=== PATIENT | female | born 1935 | race Caucasian/White ===

== ENCOUNTER 2018-02-23 11:59 | Inpatient (IN) ==
[2018-02-23] MEDS ORDERED: Sod Chloride 0.9% Inj 1,000 ML IV.SIG ONE (13:12)
--- NOTE | 2018-02-23 13:38 | XR ---
EXAM DATE: 02/23/2018 1:28 PM EST AGE/SEX: 82 years / Female INDICATIONS: Cough and congestion with belly pain. CLINICAL DATA: This is the patient's initial encounter. Patient reports that signs and symptoms have been present for 3 days and indicates a pain score of 3/10. MEDICAL/SURGICAL HISTORY: Carcinoma, uterine. Addisons disease. . Partial hysterectomy. COMPARISON: No prior exams available for comparison. FINDINGS: There are COPD changes. The heart and mediastinal contours are within normal limits. No suspicious ma ss lesion is identified. The visualized bony structures are grossly intact. CONCLUSION: COPD changes. Electronically signed by: Austyn Vale MD 02/23/2018 1:37 PM EST
--- NOTE | 2018-02-23 13:52 | ED ---
HPI General Chief complaint: Abdominal Pain Stated complaint: Abdominal Pain Time Seen by Provider: 02/23/18 13:02 Source: patient and EMS Mode of arrival: EMS Limitations: no limitations History of Present Illness HPI narrative: She is an 82-year-old female presenting to [facility] department for evaluation of nausea, an episode of diarrhea and weakness. Patient states she is felt weak for several months. She reports a decreased appetite. She states that she is lost a lot of weight. She currently lives alone and is upset about that, she states her spouse and her 2 children have . None of these deaths occurred recently. She states that she gets upset about Alfa Mtz being our president and has been very depressed. She feels this is the reason she is not eating. Patient states that she has discussed her depression with her primary doctor and reports that she has therapy which felt like shock therapy. She denies any suicidal ideations but states if she got sick enough she would stopped taking her cortisone because her doctor told her if she did not take it she would , and this is how she would end her life. Patient denies any fever , chills, headache, dizziness, shortness of breath. She denies any abdominal pain but states she feels like her stomach is "acidic". Symptom onset was gradual, symptoms are moderate, symptoms appear exacerbated by psychosocial issues. Related Data Home Medications Medication Instructions Recorded Confirmed No Known Home Medications 02/23/18 02/23/18 Allergies Allergy/AdvReac Type Severity Reaction Status Date / Time levofloxacin Allergy Severe HIVES AND Verified 02/23/18 12:55 VOMITING morphine Allergy Severe NAUSEA AND Verified 02/23/18 12:55 VOMITING penicillin G Allergy Severe UNKNOWN Verified 02/23/18 12:55 Sulfa (Sulfonamide Allergy Severe FEVER, Verified 02/23/18 12:55 Antibiotics) HIVES MOLD AdvReac Severe RESPIRATORY Uncoded 02/23/18 12:55 DIFFICULTIES PLASTICS AND NYLON AdvReac Mild RESPIRATORY Uncoded 02/23/18 12:55 DIFFICULTIES. Review of Systems ROS: all other systems reviewed are negative [facility] Medical History Medical History Addisons disease (Acute) Depression (Acute) Uterine cancer (Acute) Surgical History Surgical History History of cholecystectomy (Acute) History of partial hysterectomy (Acute) Social History Social History Substance History: No History of Abuse Second Hand Smoke Exposure: No Smoking Status: Former smoker How Often Do You Have a Drink Containing Alcohol: Never Recent Travel in [place] within the Last 8 Weeks: No Recent Out of Country Travel within the Last 8 Weeks: No Immunization History Tetanus Immunization: >5 Years Exam Narrative Exam Narrative: GENERAL: Thin, slightly cachectic alert elderly female. Presenting in no acute distress. SKIN: Focused skin assessment warm/dry. HEAD: Atraumatic. Normocephalic. EYES: Pupils equal and round. No scleral icterus. No injection or drainage. ENT: No nasal bleeding or discharge. Mucous membranes pink and moist. NECK: Trachea midline. No JVD. CARDIOVASCULAR: Regular rate and rhythm. No murmur appreciated. RESPIRATORY: No accessory muscle use. Clear to auscultation. Breath sounds equal bilaterally. GASTROINTESTINAL: Abdomen soft, non-tender, nondistended. Hepatic and splenic margins not palpable. Positive bowel sounds, no rebound, no guarding. MUSCULOSKELETAL: No obvious deformities. No clubbing. No cyanosis. No edema. NEUROLOGICAL: Awake and alert. No obvious cranial nerve deficits. Motor grossly within normal limits. Normal speech. PSYCHIATRIC: Appropriate mood and affect; insight and judgment normal. Course Initial Documented Vital Signs Temperature 97.9 F 02/23/18 12:50 Pulse Rate 96 H 02/23/18 12:50 Respiratory Rate 18 02/23/18 12:50 Blood Pressure 96/51 L 02/23/18 12:50 Pulse Oximetry 100 02/23/18 12:50 Last Documented Vital Signs Temperature 97.9 F 02/23/18 12:50 Pulse Rate 92 H 02/23/18 15:49 Respiratory Rate 18 02/23/18 15:49 Blood Pressure 102/57 L 02/23/18 15:49 Pulse Oximetry 98 02/23/18 15:50 Medical Decision Making BLAISE Attestation BLAISE supervised visit: Yes Attestation: I, Dr. Bearden, have reviewed the advance practice practitioner's documentation and am in agreement, met with the patient face to face, made the diagnosis, and the medical decision making was done by me. *My assessment and Findings: MDM Narrative Medical decision making narrative: Patient presented for evaluation of nausea and diarrhea. Her presenting complaints appear more related to psychosocial stressors and poor oral intake. Labs and imaging ordered and pending. Patient was given 1 L of IV fluids, chest x-ray shows COPD changes. Chemistry with elevated BUN and creatinine, sodium 126, potassium 5.3. Psych screen placed. Due to metabolic abnormalities patient will be admitted, admit orders placed. Medical Screen Exam Complete: Yes Emergency Medical Condition: Yes Differential Diagnosis Differential Diagnosis: Depression versus metabolic abnormality versus viral syndrome versus other Medical Records Medical records reviewed: Yes I reviewed the patient's medical records. Lab Data Lab results reviewed: Yes I reviewed the patient's lab results. Result diagrams: 02/23/18 13:45 02/23/18 13:45 Lab Results 02/23/18 02/23/18 02/23/18 Range/Units 13:45 13:45 16:00 WBC 14.7 H (4.0-11.0) th/mm3 RBC 4.54 (4.00-5.30) mil/mm3 Hgb 9.6 L (11.6-15.3) gm/dL Hct 31.6 L (35.0-46.0) % MCV 69.6 L (80.0-100.0) fL MCH 21.1 L (27.0-34.0) pg MCHC 30.3 L (32.0-36.0) % RDW 20.5 H (11.6-17.2) % Plt Count 432 (150-450) th/mm3 MPV 7.6 (7.0-11.0) fL Neut % (Auto) 89.2 H (16.0-70.0) % Lymph % (Auto) 3.3 L (9.0-44.0) % [place] % (Auto) 6.8 (0.0-8.0) % Eos % (Auto) 0.1 (0.0-4.0) % Baso % (Auto) 0.6 (0.0-2.0) % Neut # (Auto) 13.1 H (1.8-7.7) th/mm3 Lymph # (Auto) 0.5 L (1.0-4.8) th/mm3 [place] # (Auto) 1.0 H (0.0-0.9) th/mm3 Eos # (Auto) 0.0 (0.0-0.4) th/mm3 Baso # (Auto) 0.1 (0.0-0.2) th/mm3 WBC Differential . Differential Comment Auto diff final Sodium 126 L (136-145) meq/L Potassium 5.3 H (3.5-5.1) meq/L Chloride 92 L (98-107) meq/L Carbon Dioxide 19.6 L (21.0-32.0) meq/L Anion Gap 14 (5-15) meq/L BUN 54 H (7-18) mg/dL Creatinine 1.28 H (0.50-1.00) mg/dL Estimated GFR 40 L (>89) mL/min Random Glucose 113 H (74-106) mg/dL Calcium 9.3 (8.5-10.1) mg/dL Magnesium 2.5 (1.5-2.5) mg/dL Total Bilirubin 0.4 (0.2-1.0) mg/dL AST 42 H (15-37) U/L ALT 22 (10-53) U/L Alkaline Phosphatase 83 (45-117) U/L Total Protein 8.2 (6.4-8.2) g/dL Albumin 3.7 (3.4-5.0) g/dL Lipase 222 (73-393) U/L Urine Color Yellow (Yellw/Straw) Urine Clarity Hazy H (Clear) Urine pH 5.0 (5.0-8.5) Ur Specific [place] 1.016 (1.002-1.035) Urine Protein Negative (Neg-Trace) mg/dL Urine Glucose (UA) Negative (Negative) mg/dL Urine Ketones Trace H (Negative) mg/dL Urine Occult Blood Negative (Negative) Urine Nitrate Negative (Negative) Urine Bilirubin Negative (Negative) Urine Urobilinogen 2.0 H (Less than 2) mg/dL Ur Leukocyte Esterase Negative (Negative) Urine RBC Less than 1 (0-3) /hpf Urine WBC 1 (0-5) /hpf Amorphous Sediment Few H (None) /hpf Hyaline Casts 1 (0-3) /lpf Urine Mucus Few H (Occasional) /lpf Micro UA Comment Culture not ind Ur Microscopic Review Not Reportable Urine Culture Comments Culture not ind Imaging Data Radiologist's impression: Chest X-Ray 02/23/18 13:13 CONCLUSION: COPD changes. Discharge Plan Discharge Disposition Patient Disposition: 30 Still Patient Discharge Condition Condition: Stable Discharge Details Diagnosis: Acute hyponatremia, WILLIE (acute kidney injury), Acute hyperkalemia, Depression Physicians Team ED Provider: Austyn Bearden ED Midlevel Provider: Melva Anaya Primary Care Provider: Jodie Benson Rxs /Orders / Referrals /Forms Prescriptions: No Action No Known Home Medications RF: 0 Discharge Interventions Interventions: Vital Signs Last Done: 02/23/18 15:49 Status ED Status: Admitted Observation Patient
[2018-02-23 13:59] LABS: Baso # (Auto) 0.1 th/mm3 (0.0-0.2); Baso % (Auto) 0.6 % (0.0-2.0); Eos % (Auto) 0.1 % (0.0-4.0); Hematocrit 31.6 % (35.0-46.0); Hemoglobin 9.6 gm/dL (11.6-15.3); Lymph # (Auto) 0.5 th/mm3 (1.0-4.8); Lymph % (Auto) 3.3 % (9.0-44.0); Mean Corpuscular Hemoglobin 21.1 pg (27.0-34.0); Mean Corpuscular Volume 69.6 fL (80.0-100.0); Mean Platelet Volume 7.6 fL (7.0-11.0); Mono % (Auto) 6.8 % (0.0-8.0); Neut # (Auto) 13.1 th/mm3 (1.8-7.7); Neut % (Auto) 89.2 % (16.0-70.0); Platelet Count 432 th/mm3 (150-450); Red Blood Count 4.54 mil/mm3 (4.00-5.30); Red Cell Distribution Width 20.5 % (11.6-17.2); White Blood Count 14.7 th/mm3 (4.0-11.0)
[2018-02-23 14:04] LABS: Mean Corpuscular HGB Conc 30.3 % (32.0-36.0)
[2018-02-23 14:36] LABS: Alanine Aminotransferase 22 U/L (10-53); Albumin 3.7 g/dL (3.4-5.0); Anion Gap 14 meq/L (5-15); Aspartate Aminotransferase 42 U/L (15-37); Blood Urea Nitrogen 54 mg/dL (7-18); Calcium 9.3 mg/dL (8.5-10.1); Carbon Dioxide 19.6 meq/L (21.0-32.0); Chloride 92 meq/L (98-107); Glomerular Filtration Rate 40 mL/min (>89); Glucose,Random 113 mg/dL (74-106); Lipase 222 U/L (73-393); Magnesium 2.5 mg/dL (1.5-2.5); Potassium 5.3 meq/L (3.5-5.1); Sodium 126 meq/L (136-145)
[2018-02-23 14:39] LABS: Alkaline Phosphatase 83 U/L (45-117); Total Protein 8.2 g/dL (6.4-8.2)
[2018-02-23 16:14] LABS: Amorphous Sediment,Urine Few /hpf; Bilirubin,Urine Negative (Negative); Clarity,Urine Hazy (Clear); Color,Urine Yellow (Yellw/Straw); Glucose,Urine (UA) Negative (Negative); Hyaline Casts,Urine 1 /lpf (0-3); Leukocyte Esterase,Urine Negative (Negative); Mucus,Urine Few /lpf (Occasional); Nitrite,Urine Negative (Negative); Specific Gravity,Urine 1.016 (1.002-1.035)
[2018-02-23] MEDS ORDERED: Bisacodyl 10 MG Supp RECTAL PRN (17:32)
[2018-02-23] MEDS ORDERED: Acetaminophen 325 MG Tablet PO PRN (17:32)
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
[2018-02-23] MEDS: Dextrose 5%/NaCl 0.9% Inj 1,000 ML IV.CONT SCH (19:36)
[2018-02-23] MEDS: Heparin - SQ 10,000 UNITS/ML Vial SQ SCH (21:18)
[2018-02-23] MEDS: Hydrocortisone 10 MG Tablet PO SCH (21:18)
[2018-02-23 23:21] VITALS: RESP 18
[2018-02-24] MEDS: Dextrose 5%/NaCl 0.9% Inj 1,000 ML IV.CONT SCH (04:29)
[2018-02-24 05:17] LABS: Hematocrit 27.1 % (35.0-46.0); Hemoglobin 8.4 gm/dL (11.6-15.3); Mean Corpuscular Hemoglobin 21.8 pg (27.0-34.0); Mean Corpuscular Volume 70.6 fL (80.0-100.0); Mean Platelet Volume 7.8 fL (7.0-11.0); Platelet Count 389 th/mm3 (150-450); Red Blood Count 3.84 mil/mm3 (4.00-5.30); Red Cell Distribution Width 21.2 % (11.6-17.2); White Blood Count 11.2 th/mm3 (4.0-11.0)
[2018-02-24 05:21] LABS: Mean Corpuscular HGB Conc 30.9 % (32.0-36.0)
[2018-02-24 05:29] LABS: Anion Gap 9 meq/L (5-15); Blood Urea Nitrogen 33 mg/dL (7-18); Calcium 8.1 mg/dL (8.5-10.1); Carbon Dioxide 20.9 meq/L (21.0-32.0); Chloride 103 meq/L (98-107); Glomerular Filtration Rate 64 mL/min (>89); Glucose,Random 139 mg/dL (74-106); Iron 15 mcg/dL (50-170); Potassium 4.7 meq/L (3.5-5.1); Sodium 133 meq/L (136-145)
[2018-02-24 05:30] LABS: % Iron Saturation 4.2 % (20-50); Alanine Aminotransferase 16 U/L (10-53); Alkaline Phosphatase 70 U/L (45-117); Aspartate Aminotransferase 18 U/L (15-37); Total Iron Binding Capacity 354 mcg/dL (250-450); Total Protein 6.7 g/dL (6.4-8.2)
[2018-02-24] MEDS: Heparin - SQ 10,000 UNITS/ML Vial SQ SCH (06:20)
[2018-02-24 06:42] LABS: Burr Cells 1+; Lymphocytes 8 % (9-44); Monocytes 3 % (0-8); Ovalocytes 1+; Platelet Estimate Normal (Normal); Platelet Morphology Normal (Normal)
[2018-02-24 07:17] VITALS: BP 83/40; PULSE 78; TEMP 97.9; O2SAT 98
[2018-02-24] MEDS: Hydrocortisone 10 MG Tablet PO SCH (08:31)
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
[2018-02-24] MEDS ORDERED: Venlafaxine XR 37.5 MG Capsule PO SCH (12:15)
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
[2018-02-25 15:05] LABS: Chloride, Feces ND mmol/L (()); Osmolality, Feces ND mOsm/kg (()); Potassium, Feces ND mmol/L (()); Sodium, Feces ND mmol/L (())
== END 2018-02-24 13:50 ==
LOC: NEDA 11:59 → NEPE 11:59 → NEPGCP 18:56
PROVIDERS: ADMIT Family Medicine; ATTEND Family Medicine

== ENCOUNTER 2018-02-24 13:52 | Inpatient (IN) ==
[2018-02-24] MEDS ORDERED: Bisacodyl 10 MG Supp RECTAL PRN (14:52)
[2018-02-24] MEDS ORDERED: Aluminum/Magnesium/Simethacone Susp 30 ML UDC PO PRN (14:52)
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
[2018-02-25] MEDS: Senna/Docusate Sodium 8.6/50 MG Tablet PO SCH ×3 (00:19→19:59)
[2018-02-25 09:56] LABS: Calcium 7.7 mg/dL (8.5-10.1); Carbon Dioxide 21.9 meq/L (21.0-32.0); Potassium 4.1 meq/L (3.5-5.1)
[2018-02-25 10:16] LABS: Chol/HDL Ratio 3.88 Ratio; HDL Cholesterol 36.3 mg/dL (40.0-60.0); Thyroid Stimulating Hormone 2.46 uIU/mL (0.358-3.740)
--- NOTE | 2018-02-25 12:21 | P.PNPSY ---
Subjective Remarks: Patient initially admitted by Dr. Romo under the Mckeon act I reviewed Dr. Romo's initial H&P. Dr. Romo has signed first opinion petition supporting Mckeon act I have finished the initial psychiatric template admitting orders and did the med reconciliation review. I have also consulted dietary for this lady. Patient seen by me with RN laying quietly in bed she is a thin slight slender pale frail white female appears her stated age complaining of nausea and weakness. Also complaining of the depression with insomnia decreased appetite marked anhedonia and vague paranoid ideation focus somewhat on bedtime and perceived threats to herself. At this time I feel patient does meet criteria for involuntary psychiatric hospitalization thus I will cosign second opinion petition supporting Mckeon act we will have hospitalist consult will us we will have dietitian consult with us. Patient states her only family is a granddaughter that lives locally for now continue treatment we will order Zofran for her nausea we will continue medications ordered by Dr. Romo Review of Systems Patient complaining of a chronic nausea All other systems reviewed negative except as stated in HPI Mental Status Examination Appearance: Appropriate Consciousness: Alert Orientation: x4 Motor Activity: Normal gait Speech: Unremarkable Language: Adequate Fund of Knowledge: Adequate Attention and Concentration: Adequate Memory: Unremarkable Mood: Sad, Irritable Affect: Other (Slight decreased range and intensity) Thought Process & Associations: Intact Thought Content: Appropriate Hallucination Type: None Delusion Type: Paranoid, Somatic Suicidal Ideation: No Suicidal Plan: No Suicidal Intention: No Homicidal Ideation: No Homicidal Plan: No Homicidal Intention: No Insight: Poor Judgment: Poor Assessment and Plan - Assessment (1) Major depressive disorder, single episode, severe, with psychosis Code(s): F32.3 - Major depressive disorder, single episode, severe with psychotic features Status: Acute - Plan Plan: At this time patient remains significantly depressed with vague psychotic features. Though she denies suicidality but depression is significant and is led to her inability to care for herself we will have hospitalist consult will us dietary consult will us also PT and OT consultation Justification for Continued Inpatient Stay: At this time patient would decompensate a place to a lower level of care Discharge Planning: To be determined patient wants to go back to her own home but perhaps more extended stay in a rehab-type facility would be appropriate as opposed to home with home health care Request Healthcare Surrogate/Guardian Advocate?: No
--- NOTE | 2018-02-25 14:01 | P.CON ---
History of Present Illness Service: Hospitalist Consult date: 02/25/18 Requesting Physician: Alberto Wright Reason for Consult: Assist with ongoing medical management Primary Care Provider: UNKNOWN History of Present Illness: This is an 82yo female with a PMHX significant for history of Fairmont's disease , history of depression and uterine cancer in remission who was admitted with diarrhea and generalized weakness. Patient reported weight loss and poor oral intake for the past few months. She was found to be in acute renal failure and was treated with IVF hydration. Due to her failure to thrive, she was seen in consultation by psychiatry and has since been admitted to inpatient psychiatry unit. Hospitalist services have been consulted to assist with ongoing medical management. Patient seen and examined. Patient is encountered in her lying in a position. Patient is awake and alert. She says that she does not have any appetite. She has not been drinking as well. She complains of nausea. She denies any vomiting. She denies any abdominal pain at this time. She denies any chest pain or shortness of breath. Review of Systems All other systems reviewed negative except as stated in HPI PMFSH - History History Provided By: Patient - Medical History Medical History: Medical History (Last Reviewed 02/25/18 @ 14:15 by Pilar Ramirez) Addisons disease Depression Uterine cancer - Surgical History Surgical History: Surgical History (Last Reviewed 02/25/18 @ 14:15 by Pilar Ramirez) History of cholecystectomy History of partial hysterectomy - Family History Family History: Family History (Last Reviewed 02/25/18 @ 14:15 by Pilar Ramirez) Son Lung cancer Daughter Asthma Other Family history of cancer - Social History I have reviewed the patient's Social History: Yes - Tobacco History Second Hand Smoke Exposure: No Smoking Status: Former smoker - Alcohol History How Often Do You Have a Drink Containing Alcohol: Never - Substance Use History Substance History: No History of Abuse Medications and Allergies Active Medications: Active Medications Al Hydrox/Mg Hydrox/Simethicone (Mag-Al Plus Susp Liq) 30 ml PO Q6H PRN PRN Reason: DYSPEPSIA Al Hydroxide/Mg Hydroxide (Milk Of Magnesia Liq) 30 ml PO Q12H PRN PRN Reason: Mild Constipation Al Hydroxide/Mg Hydroxide (Milk Of Magnesia Liq) 30 ml PO Q12H PRN PRN Reason: Mild Constipation Bisacodyl (Dulcolax Supp) 10 mg RECTAL DAILY PRN PRN Reason: SEVERE CONSITIPATION Diphenhydramine HCl (Benadryl) 50 mg PO HS PRN PRN Reason: INSOMNIA Ferrous Fumarate (Hemocyte) 324 mg PO BID [facility] Hydrocortisone Acetate (Cortef) 10 mg PO BID [facility] Hydroxyzine HCl (Atarax) 50 mg PO Q6H PRN PRN Reason: ANXIETY Lactulose (Lactulose Liq) 30 ml PO DAILY PRN PRN Reason: SEVERE CONSITIPATION Olanzapine (Zyprexa Zydis Odt) 5 mg PO HS [facility] Last Admin: 02/25/18 00:19 Dose: Not Given Senna/Docusate Sodium (Eulalia-Colace) 1 tab PO BID [facility] Last Admin: 02/25/18 09:57 Dose: Not Given Sennosides (Senokot) 17.2 mg PO Q12H PRN PRN Reason: Moderate Constipation Venlafaxine HCl (Effexor) 25 mg PO DAILY [facility] Last Admin: 02/25/18 09:56 Dose: 25 mg Allergies Allergy/AdvReac Type Severity Reaction Status Date / Time levofloxacin Allergy Severe HIVES AND Verified 02/23/18 12:55 VOMITING morphine Allergy Severe NAUSEA AND Verified 02/23/18 12:55 VOMITING penicillin G Allergy Severe UNKNOWN Verified 02/23/18 12:55 Sulfa (Sulfonamide Allergy Severe FEVER, Verified 02/23/18 12:55 Antibiotics) HIVES MOLD AdvReac Severe RESPIRATORY Uncoded 02/23/18 12:55 DIFFICULTIES PLASTICS AND NYLON AdvReac Mild RESPIRATORY Uncoded 02/23/18 12:55 DIFFICULTIES. Physical Exam Vital signs: Vital Signs 02/25/18 06:57 Temperature 99.0 F Pulse Rate 77 Respiratory Rate 16 Blood Pressure 95/43 L Pulse Oximetry 91 L Intake & Output 02/24/18 02/25/18 02/25/18 18:59 06:59 18:59 Weight 49.8 kg Other: Date of Last Bowel Movement 02/24/18 Weight On Admission 49.8 kg Narrative: GENERAL: Extremely thin, frail elderly female patient, INAD. Awake and alert. SKIN: Warm and dry. HEAD: Atraumatic. Normocephalic. EYES: Pupils equal and round. No scleral icterus. No injection or drainage. ENT: No nasal bleeding or discharge. Mucous membranes pink and moist. NECK: Trachea midline. CARDIOVASCULAR: Regular rate and rhythm. RESPIRATORY: No accessory muscle use. Clear to auscultation. Breath sounds equal bilaterally. GASTROINTESTINAL: Abdomen soft, non-tender, nondistended. +BS. MUSCULOSKELETAL: Extremities without clubbing, cyanosis, or edema. No obvious deformities. NEUROLOGICAL: Awake and alert. No obvious cranial nerve deficits. Motor grossly within normal limits. Able to move all extremities spontaneously. Normal speech. PSYCHIATRIC: Calm and cooperative. Insight and judgement poor. Results - Labs CBC & Chem 7: 02/25/18 08:55 Labs: Laboratory Results - last 24 hr 02/25/18 02/25/18 08:55 08:55 Sodium 132 L Potassium 4.1 Chloride 102 Carbon Dioxide 21.9 Anion Gap 8 BUN 18 Creatinine 1.02 H Estimated GFR 52 L Random Glucose 128 H Calcium 7.7 L Triglycerides 172 H Cholesterol 141 LDL Cholesterol, Calc 70 HDL Cholesterol 36.3 L Cholesterol/HDL Ratio 3.88 TSH 2.460 Cortisol 0.8 Assessment and Plan - Plan 82/F with h/o Fairmont's disease presenting with diarrhea and generalized weakness now admitted to inpatient psychiatry Depression Anxiety Failure to thrive -Management per psychiatry Fairmont's disease possibly contributing given complaints of abdominal pain, fatigue, weight loss, N/V doubt complete suppression since patient does not have hypoglycemia -cortisol level low this am -Continue on home dose of hydrocortisone -ACTH pending -Plan to repeat cortisol level in the next few days Acute renal failure no baseline creatinine other than from 2013 which was normal -creatinine 1.28 at ED presentation but improved with IVF hydration -creatinine now trending up slightly, suspect due to poor p.o. intake -encourage po fluid -Avoid nephrotoxic agents -Repeat BMP in a.m. -Low threshold to transfer patient up to med psych for IV fluid hydration Hypotension -encourage po intake -monitor BP closely -low threshold to transfer to med psych as stated above Hyponatremia, suspect secondary to hypovolemia Na level 126 at ED presentation improved to 133 with IVF -continue to monitor Na level especially in light of poor po fluid intake Diarrhea no BM today -C diff neg -no eosinophils -stool studies pending -monitor BM pattern Generalized weakness Failure to thrive Poor p.o. intake -Consult dietitian, appreciate assistance -Continue with PT/OT Microcytic anemia NIMESH by iron studies -continue on po iron supplementation -hgb dropped from 9.6 to 8.4, repeat CBC in am -monitor for any evidence of bleeding DVT prophylaxis:High risk, Heparin Thank you very kindly for allowing us to assist in the care of this patient. We will continue to follow patient along with you. Code Status: Full Discussed Condition With: patient, nursing staff, Dr. Willis
[2018-02-25 16:40] LABS: Hemoglobin A1c 5.4 % (4.3-6.0)
[2018-02-25 17:28] LABS: Baso # (Auto) 0.1 th/mm3 (0.0-0.2); Baso % (Auto) 0.9 % (0.0-2.0); Eos # (Auto) 0.2 th/mm3 (0.0-0.4); Eos % (Auto) 2.7 % (0.0-4.0); Hemoglobin 7.2 gm/dL (11.6-15.3); Lymph # (Auto) 1.8 th/mm3 (1.0-4.8); Lymph % (Auto) 20.7 % (9.0-44.0); Mean Corpuscular HGB Conc 31.5 % (32.0-36.0); Mean Corpuscular Hemoglobin 21.8 pg (27.0-34.0); Mean Corpuscular Volume 69.2 fL (80.0-100.0); Mean Platelet Volume 7.7 fL (7.0-11.0); Mono # (Auto) 1.4 th/mm3 (0.0-0.9); Mono % (Auto) 15.5 % (0.0-8.0); Neut # (Auto) 5.3 th/mm3 (1.8-7.7); Neut % (Auto) 60.2 % (16.0-70.0); Platelet Count 374 th/mm3 (150-450); Red Blood Count 3.32 mil/mm3 (4.00-5.30); Red Cell Distribution Width 21.2 % (11.6-17.2); White Blood Count 8.8 th/mm3 (4.0-11.0)
[2018-02-25] MEDS: Heparin - SQ 10,000 UNITS/ML Vial SQ SCH (21:44)
[2018-02-25] MEDS: Hydrocortisone 10 MG Tablet PO SCH (21:44)
[2018-02-26 07:48] LABS: Baso # (Auto) 0.1 th/mm3 (0.0-0.2); Baso % (Auto) 1.8 % (0.0-2.0); Eos # (Auto) 0.1 th/mm3 (0.0-0.4); Hematocrit 23.3 % (35.0-46.0); Hemoglobin 7.4 gm/dL (11.6-15.3); Lymph # (Auto) 1.3 th/mm3 (1.0-4.8); Lymph % (Auto) 18.6 % (9.0-44.0); Mean Corpuscular HGB Conc 31.6 % (32.0-36.0); Mean Corpuscular Hemoglobin 21.8 pg (27.0-34.0); Mean Corpuscular Volume 68.8 fL (80.0-100.0); Mean Platelet Volume 7.9 fL (7.0-11.0); Mono # (Auto) 0.9 th/mm3 (0.0-0.9); Mono % (Auto) 12.7 % (0.0-8.0); Neut # (Auto) 4.7 th/mm3 (1.8-7.7); Neut % (Auto) 65.9 % (16.0-70.0); Platelet Count 398 th/mm3 (150-450); Red Blood Count 3.38 mil/mm3 (4.00-5.30); Red Cell Distribution Width 20.6 % (11.6-17.2); White Blood Count 7.1 th/mm3 (4.0-11.0)
[2018-02-26 08:20] LABS: Calcium 8.3 mg/dL (8.5-10.1); Carbon Dioxide 24.4 meq/L (21.0-32.0); Potassium 4.7 meq/L (3.5-5.1)
[2018-02-26] MEDS: Hydrocortisone 10 MG Tablet PO SCH ×2 (09:08→21:17)
[2018-02-26] MEDS: Senna/Docusate Sodium 8.6/50 MG Tablet PO SCH ×2 (09:09→21:17)
[2018-02-26] MEDS: Heparin - SQ 10,000 UNITS/ML Vial SQ SCH ×2 (09:25→21:18)
--- NOTE | 2018-02-26 13:13 | P.PNPSY ---
Subjective Remarks: Patient seen in her room with nurse Li, chart reviewed, patient compliant medication. Patient alert oriented showing increased animation increased affect and increased "feisty" she is well oriented. Wants to return to her home when she is feeling better. She denies suicidality denies voices or visions. Dietary seen patient will order her mechanical soft diet. Also because of her poor physical condition and nutritional state we will transfer the patient to 4 E. to get further medical attention along with the mental health issues. Hopefully will be able to arrange appropriate services for this lady to return to her home Review of Systems All other systems reviewed negative except as stated in HPI Mental Status Examination Appearance: Appropriate Consciousness: Alert Orientation: x4 Motor Activity: Normal gait Speech: Unremarkable Language: Adequate Fund of Knowledge: Adequate Attention and Concentration: Adequate Memory: Unremarkable Mood: Sad, Irritable Affect: Other (Slight decreased range and intensity) Thought Process & Associations: Intact Thought Content: Appropriate Hallucination Type: None Delusion Type: None Suicidal Ideation: No Suicidal Plan: No Suicidal Intention: No Homicidal Ideation: No Homicidal Plan: No Homicidal Intention: No Insight: Poor Judgment: Poor Assessment and Plan - Assessment (1) Major depressive disorder, single episode, severe, with psychosis Code(s): F32.3 - Major depressive disorder, single episode, severe with psychotic features Status: Acute - Plan Plan: Patient is showing improvement in her mood her affect and her energy. Showing some insight into how weak and debilitated she was. She still low he has some good Nan. She does wish to return to her home. Hopefully we can make arrangements to allow her to do that however today we will be transferring her to 4 E. for further care and attention Justification for Continued Inpatient Stay: At this time patient would decompensate a place to a lower level of care Discharge Planning: To be determined perhaps returning to her home with appropriate in-home assistance Request Healthcare Surrogate/Guardian Advocate?: No
--- NOTE | 2018-02-26 13:30 | P.DIET ---
Nutritional Evaluation Type of nutrition evaluation: initial Nutrition consult regarding: Diet Evaluation [place] [facility] [place]: [place] [facility] [place] history of Mayaguez's disease malnourished dehydrated elderly lady Subjective Oral Diet Tolerance Assessment Indicates: Chewing problems Subjective Comments: Pt visited in her room during lunch. Pt says she is "worried" about many things , including, but not limited to: two top teeth only-partial is not w/her; teeth have "broken off" in the past and pt says her dentist has had her on antibiotics for this "many times" and this has caused her to have "bad bacteria " in her gut and she is always nauseous; talks w/her friends everyday about how bad the country is and thinks her social security will be taken away; says her doctor told her not to eat anything w/chemicals, therefore, pt declines Ensure supplement; wants her food in her room vs eating in the dayroom because her hips hurt her-noted PT did assist pt w/her walker and she walked form her room to the dayroom and back. All of the above discussed w/RN Li. Objective - Diagnosis Failure To Thrive, Depression - Indications of Malnutrition Classification: Chronic disease or injury-related Malnutrition Characteristics: Weight loss - Objective % IBW: 100 Body Weight Used for Calculations: Actual (49.8 kg) Energy Needs - Lower Range (kCal/kg): 30 Energy Needs - Upper Range (kCal/kg): 35 Lower Limit kCal/kg (kCals): 1,494 Upper Limit kCal/kg (kCals): 1,743 Lower Limit Protein Factor (Grams per Kg): 1.2 Upper Limit Protein Factor (Grams per Kg): 1.5 Lower Protein Needs (Protein): 60 Upper Protein Needs (Protein): 75 Fluid Factor (ml/kg): 30 Estimated Fluid Needs (ml): 1,494 Dietitian Reviewed in Medical Record: Current diet, Curent medications, Intake & Output, Labs, Medical history Diet Order: Mechanical Soft Oral Diet Intake Amount: Poor <50% Objective Comments: PMH: Mayaguez's Disease, Depression, Uterine Cancer A1C 5.4, Na 131, Cortisol 0.8, TG 172, HDL 36.3 Meds include: Zofran, Zyprexa, Effexor, Hydrocortisone Assessment Assessment: Pt is at nutritional risk r/t diagnosis, clinical status and poor po intake. Pt has very poor appetite. Consider an appetite stimulant if medically appropriate. Pt has chronic nausea and is receiving Zofran. Rec a probiotic. Pt is edentulous-only two top teeth. Discussed w/RN [facility]. Pt declines Ensure r/t "it contains too many chemicals". Plan to TRIAL Mighty Shakes w/meals for pt acceptance(= 300 kcal and 9g protein). Pt would benefit from a daily MVM. Labs reviewed. Dietitian will follow. Recommendations: 1. Consider an appetite stimulant, if medically appropriate 2. Rec a probiotic 3. Mech Soft diet 4. Pt declines Ensure 5. Plan to TRIAL Mighty Shakes w/meals for pt acceptance 6. Pt would benefit from a daily MVM 7. Dietitian will follow Dietitian to Monitor: Lab values, Electrolytes, Supplement acceptance, Intake & Output, Diet tolerance, Weight change, PO Intake, Medical course
--- NOTE | 2018-02-26 15:30 | P.PN ---
Subjective Interval history: Follow-up visit for Bernabe's and failure to thrive. Nurse reports patient has not been eating or drinking much, no events overnight. Patient seen and examined in bed in no acute distress. She reports that she has not yet received her hydrocortisone and this is very important as her coater smoking pipe told her she could if she did not take this. She does admit that she has not been eating or drinking as much as she should. She denies any fevers, chills, N/V/D, cough or SOB. She reports an upset stomach yesterday after having apple sauce with strawberries which she knows she cannot have as these do not set well with her, this has resolved per patient. Physical Exam Vital signs: Vital Signs 02/25/18 18:10 02/26/18 05:44 Temperature 97.4 F L 99.5 F Pulse Rate 76 84 Respiratory Rate 16 16 Blood Pressure 120/58 L 96/51 L Pulse Oximetry 96 Intake & Output 02/25/18 02/26/18 02/26/18 18:59 06:59 18:59 Intake Total 120 / 120 Balance 120 / 120 Intake: Oral 120 / 120 Other: # Voids 1 Date of Last Bowel Movement 02/24/18 Narrative: GENERAL: Extremely thin, frail elderly female patient, INAD. Awake and alert. SKIN: Warm, dry, pale. HEAD: Atraumatic. Normocephalic. EYES: Pupils equal and round. No scleral icterus. No injection or drainage. ENT: No nasal bleeding or discharge. Mucous membranes pink and moist. NECK: Trachea midline. CARDIOVASCULAR: Regular rate and rhythm. RESPIRATORY: No accessory muscle use. Clear to auscultation. Breath sounds equal bilaterally. GASTROINTESTINAL: Abdomen soft, non-tender, nondistended. +BS. MUSCULOSKELETAL: Extremities without clubbing, cyanosis, or edema. No obvious deformities. NEUROLOGICAL: Awake and alert. No obvious cranial nerve deficits. Motor grossly within normal limits. Able to move all extremities spontaneously. Normal speech. PSYCHIATRIC: Calm and cooperative. Results - Labs CBC & Chem 7: 02/26/18 06:47 02/26/18 06:47 Laboratory Results - last 24 hr 02/25/18 02/25/18 02/26/18 08:55 16:55 06:47 WBC 8.8 7.1 RBC 3.32 L 3.38 L Hgb 7.2 L 7.4 L Hct 23.0 L 23.3 L MCV 69.2 L 68.8 L MCH 21.8 L 21.8 L MCHC 31.5 L 31.6 L RDW 21.2 H 20.6 H Plt Count 374 398 MPV 7.7 7.9 Neut % (Auto) 60.2 65.9 Lymph % (Auto) 20.7 18.6 Crisp % (Auto) 15.5 H 12.7 H Eos % (Auto) 2.7 1.0 Baso % (Auto) 0.9 1.8 Neut # (Auto) 5.3 4.7 Lymph # (Auto) 1.8 1.3 Crisp # (Auto) 1.4 H 0.9 Eos # (Auto) 0.2 0.1 Baso # (Auto) 0.1 0.1 WBC Differential . . Differential Comment Auto diff final Auto diff final Sodium Potassium Chloride Carbon Dioxide Anion Gap BUN Creatinine Estimated GFR Random Glucose Hemoglobin A1c 5.4 Calcium 02/26/18 06:47 WBC RBC Hgb Hct MCV MCH MCHC RDW Plt Count MPV Neut % (Auto) Lymph % (Auto) Crisp % (Auto) Eos % (Auto) Baso % (Auto) Neut # (Auto) Lymph # (Auto) Crisp # (Auto) Eos # (Auto) Baso # (Auto) WBC Differential Differential Comment Sodium 131 L Potassium 4.7 Chloride 100 Carbon Dioxide 24.4 Anion Gap 7 BUN 14 Creatinine 0.85 Estimated GFR 64 L Random Glucose 81 Hemoglobin A1c Calcium 8.3 L Assessment and Plan - Plan 82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 intake after transfer to outpatient psych. -Continue to encourage po fluid -Avoid nephrotoxic agents -Transfer to [facility] for IVF Hypotension -Component due to Bernabe's and poor p.o. intake - Asymptomatic, IVF, continue to monitor BP's Hyponatremia, suspect secondary to hypovolemia Na level 126 at ED presentation improved with IVF -continue to monitor Na Diarrhea -C diff neg -no eosinophils -stool studies pending -component possibly due to Bernabe's Generalized weakness Failure to thrive Poor p.o. intake -Consult dietitian, appreciate assistance. Recommends soft diet with Mighty shakes, no Megace as this could cause further adrenal suppression. -Continue with PT/OT Microcytic anemia NIMESH by iron studies -continue on po iron supplementation -hgb 7.2/23.0-->7.4/23.3 stable with no sign of bleeding. DVT prophylaxis:High risk, Heparin Discussed Condition With: Patient and RN
[2018-02-26] MEDS: Sod Chloride 0.9% Inj 1,000 ML IV.CONT SCH ×2 (17:35→23:41)
[2018-02-26] MEDS: Lactobacillus Acidophilus/L. Spores Tablet PO SCH (21:17)
--- NOTE | 2018-02-27 08:36 | P.PN ---
Subjective Interval history: Follow-up visit for failure to thrive and Adel's. Spoke with nurse who reports patient is still not eating much of anything. Patient is seen and examined resting in bed in no acute distress. She reports that she follows a strict diet with no chemicals. She is requesting regular eggs, she is also not drinking Mighty Shake as she reports seeing the long list of chemicals listed on the back of the carton. She also tells me that she was told by a staff member that she is not to drink things after they have set out for prolonged periods of time as these can grow bacteria. Physical Exam Vital signs: Vital Signs 02/26/18 17:33 02/27/18 06:00 Temperature 97.7 F 98.2 F Pulse Rate 84 82 Respiratory Rate 15 14 Blood Pressure 114/53 L 110/49 L Pulse Oximetry 99 95 Intake & Output 02/26/18 02/27/18 02/27/18 18:59 06:59 18:59 Intake Total 240 / 240 0 / 0 Balance 240 / 240 0 / 0 Intake: Oral 240 / 240 0 / 0 Other: # Voids 1 Date of Last Bowel Movement 02/24/18 Narrative: GENERAL: Extremely thin, frail elderly female patient, INAD. Awake and alert. SKIN: Warm, dry, pale. HEAD: Atraumatic. Normocephalic. EYES: Pupils equal and round. No scleral icterus. No injection or drainage. ENT: No nasal bleeding or discharge. Mucous membranes pink and moist. NECK: Trachea midline. CARDIOVASCULAR: Regular rate and rhythm. RESPIRATORY: No accessory muscle use. Clear to auscultation. Breath sounds equal bilaterally. GASTROINTESTINAL: Abdomen soft, non-tender, nondistended. +BS. MUSCULOSKELETAL: Extremities without clubbing, cyanosis, or edema. No obvious deformities. NEUROLOGICAL: Awake and alert. No obvious cranial nerve deficits. Motor grossly within normal limits. Able to move all extremities spontaneously. Normal speech. PSYCHIATRIC: Calm and cooperative. 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 intake after transfer to outpatient psych. -Continue to encourage po fluid -Avoid nephrotoxic agents -IVF for hydration, check BMP tomorrow. Hypotension -Component due to Bernabe's and poor p.o. intake - Asymptomatic, IVF,BP stable. Hyponatremia, suspect secondary to hypovolemia Na level 126 at ED presentation improved with IVF -continue to monitor Na Diarrhea -C diff neg -no eosinophils -stool studies pending -component possibly due to Bernabe's Generalized weakness Failure to thrive Poor p.o. intake -Consult dietitian, appreciate assistance. Recommends soft diet with Mighty shakes, no Megace as this could cause further adrenal suppression. - Breakfast ordered by staff this a.m. per patient request. -Continue with PT/OT Microcytic anemia NIMESH by iron studies -continue on po iron supplementation -hgb 7.2/23.0-->7.4/23.3 stable with no sign of bleeding. DVT prophylaxis:High risk, Heparin Discussed Condition With: Patient and RN
--- NOTE | 2018-02-27 10:18 | P.PNPSY ---
Subjective Remarks: Patient seen in her room with nurse Ladonna, chart reviewed, hospitalist note reviewed and appreciated and agreed with, patient compliant medication. Patient continues alert calm cooperative with me was somewhat feisty. She is somewhat somatic now complaining of some congestion and sinus fullness. She is cooperative with her medical treatment though. She does denies suicidality voices or visions. For now continue treatment. The hope is that she can return to her home with appropriate services to give her chance at being successful. Also will work with her granddaughter to assist us with that Review of Systems All other systems reviewed negative except as stated in HPI Mental Status Examination Appearance: Appropriate Consciousness: Alert Orientation: x4 Motor Activity: Other (Patient weak using a walker when ambulating) Speech: Unremarkable Language: Adequate Fund of Knowledge: Adequate Attention and Concentration: Adequate Memory: Unremarkable Mood: Sad, Irritable Affect: Other (Slight decreased range and intensity) Thought Process & Associations: Intact Thought Content: Appropriate Hallucination Type: None Delusion Type: None Suicidal Ideation: No Suicidal Plan: No Suicidal Intention: No Homicidal Ideation: No Homicidal Plan: No Homicidal Intention: No Insight: Poor Judgment: Poor Assessment and Plan - Assessment (1) Major depressive disorder, single episode, severe, with psychosis Code(s): F32.3 - Major depressive disorder, single episode, severe with psychotic features Status: Acute - Plan Plan: Patient continues depressed, though denying suicidality, compliant medications, continuing to cooperate with her medical workup and treatment Justification for Continued Inpatient Stay: At this time patient would decompensate if placed in a lower level of care Discharge Planning: Hopefully to return home with appropriate services in the community and in the home Request Healthcare Surrogate/Guardian Advocate?: No
[2018-02-27] MEDS: Senna/Docusate Sodium 8.6/50 MG Tablet PO SCH ×2 (10:52→21:36)
[2018-02-27] MEDS: Heparin - SQ 10,000 UNITS/ML Vial SQ SCH ×2 (10:52→21:36)
[2018-02-27] MEDS: Hydrocortisone 10 MG Tablet PO SCH ×2 (10:52→21:36)
[2018-02-27] MEDS: Lactobacillus Acidophilus/L. Spores Tablet PO SCH ×2 (10:52→21:36)
[2018-02-27] MEDS: Sod Chloride 0.9% Inj 1,000 ML IV.CONT SCH ×2 (10:53→21:58)
[2018-02-28] MEDS: Sod Chloride 0.9% Inj 1,000 ML IV.CONT SCH (07:17)
[2018-02-28] MEDS: Heparin - SQ 10,000 UNITS/ML Vial SQ SCH ×2 (08:08→21:39)
[2018-02-28] MEDS: Lactobacillus Acidophilus/L. Spores Tablet PO SCH ×2 (08:08→21:39)
[2018-02-28] MEDS: Senna/Docusate Sodium 8.6/50 MG Tablet PO SCH ×2 (08:08→21:39)
[2018-02-28] MEDS: Hydrocortisone 10 MG Tablet PO SCH ×2 (08:08→21:39)
--- NOTE | 2018-02-28 08:09 | P.PN ---
Subjective Interval history: Follow-up visit for poor p.o. intake, and Vernon's. Spoke with nurse late yesterday who reported patient was eating better. This morning she has eating about 1/2 of her oatmeal and is drinking fluids. Patient is seen and examined sitting up in bed and appears to be in no acute distress. She reports felling better today. Complaints of some nausea this morning, but no vomiting is requesting medication through her IV for nausea. She denies any fevers, chills , cough, shortness of breath or chest pain. States that she has been walking well with therapy. Physical Exam Vital signs: Vital Signs 02/27/18 17:49 02/28/18 05:51 Temperature 98.2 F 97.7 F Pulse Rate 88 77 Respiratory Rate 20 15 Blood Pressure 106/52 L 114/49 L Pulse Oximetry 97 96 Intake & Output 02/27/18 02/28/18 02/28/18 18:59 06:59 18:59 Intake Total 1000 / 1000 1020 / 1020 1000 / 1000 Balance 1000 / 1000 1020 / 1020 1000 / 1000 Intake: IV 1000 / 1000 900 / 900 1000 / 1000 NS Inj 1,000 ML @ 100 mls/hr IV 1000 / 1000 900 / 900 1000 / 1000 .CONT .Q10H JUAREZ Rx#:[id number] Oral 0 / 0 120 / 120 Other: # Voids 3 Date of Last Bowel Movement 02/24/18 Narrative: GENERAL: Extremely thin, frail elderly female patient, INAD. Awake and alert. SKIN: Warm, dry, pale. HEAD: Atraumatic. Normocephalic. EYES: Pupils equal and round. No scleral icterus. No injection or drainage. ENT: No nasal bleeding or discharge. Mucous membranes pink and moist. NECK: Trachea midline. CARDIOVASCULAR: Regular rate and rhythm. RESPIRATORY: No accessory muscle use. Clear to auscultation. Breath sounds equal bilaterally. GASTROINTESTINAL: Abdomen soft, non-tender, nondistended. +BS. MUSCULOSKELETAL: Extremities without clubbing, cyanosis, or edema. No obvious deformities. NEUROLOGICAL: Awake and alert. No obvious cranial nerve deficits. Motor grossly within normal limits. Able to move all extremities spontaneously. Normal speech. PSYCHIATRIC: Calm and cooperative. 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 Acute renal failure no baseline creatinine other than from 2013 which was normal -BMP this morning improved, patient increase p.o. intake. DC IV fluids for the moment and recheck labs in 2 days. -Continue to encourage po fluid -Avoid nephrotoxic agents Hypotension -Component due to Vernon's and poor p.o. intake -BP improved, continue to monitor Hyponatremia, suspect secondary to hypovolemia Na level 126 at ED presentation improved with IVF -Sodium level within normal limits this morning. Diarrhea -C diff neg -no eosinophils -component possibly due to Bernabe's -No further reports of diarrhea, nausea this morning, antiemetics as needed. Generalized weakness Failure to thrive Poor p.o. intake -Consult dietitian, appreciate assistance. Recommends soft diet with Mighty shakes, no Megace as this could cause further adrenal suppression. -Noted increase in p.o. intake -Continue with PT/OT Microcytic anemia NIMESH by iron studies -continue on po iron supplementation -hgb 7.2/23.0-->7.4/23.3 stable with no sign of bleeding. DVT prophylaxis:High risk, Heparin Discussed Condition With: Patient and RN
[2018-02-28 08:37] LABS: Anion Gap 8 meq/L (5-15); Blood Urea Nitrogen 8 mg/dL (7-18); Calcium 7.6 mg/dL (8.5-10.1); Carbon Dioxide 23.5 meq/L (21.0-32.0); Chloride 107 meq/L (98-107); Glomerular Filtration Rate Greater Than 89 mL/min (>89); Glucose,Random 88 mg/dL (74-106); Potassium 4.3 meq/L (3.5-5.1); Sodium 138 meq/L (136-145)
--- NOTE | 2018-02-28 17:01 | P.PNPSY ---
Subjective Remarks: Pt seen and discussed with staff. She was admitted due to failure to thrive. Staff report that pt has been alert and cooperative with medications and care. Eating and fluid intake has improved. She has started socializing some with peers and tentatively ambulating in the hallways. She is tearful and states that all of her family and friends are doesn't remember visitors today. No SI/HI Mental Status Examination Appearance: Appropriate Consciousness: Alert Orientation: x4 Motor Activity: Other (Patient weak using a walker when ambulating) Speech: Unremarkable Language: Adequate Fund of Knowledge: Adequate Attention and Concentration: Adequate Memory: Unremarkable Mood: Sad Affect: Other (some tearfulness intermittently) Thought Process & Associations: Linear Thought Content: Appropriate Hallucination Type: None Delusion Type: Other (family is ) Suicidal Ideation: No Suicidal Plan: No Suicidal Intention: No Homicidal Ideation: No Homicidal Plan: No Homicidal Intention: No Insight: Poor Judgment: Poor Assessment and Plan - Assessment (1) Major depressive disorder, single episode, severe, with psychosis Code(s): F32.3 - Major depressive disorder, single episode, severe with psychotic features Status: Acute - Plan Plan: Continue current tx plan. Justification for Continued Inpatient Stay: self care neglects Request Healthcare Surrogate/Guardian Advocate?: No
--- NOTE | 2018-03-01 08:28 | P.PN ---
Subjective Interval history: Follow-up visit for Bernabe's and failure to thrive. Nurse reports patient is eating meals and drinking. She is seen and examined sitting up in bed in no acute distress awake and alert. Reports she is feeling better, has been waling around the nurses station. She also reports eating well, denies any fevers, chills, N/V/D, cough or SOB. She is requesting to go home, she is upset that she has been locked up and states she is planning [facility]. Physical Exam Vital signs: Vital Signs 02/28/18 16:18 03/01/18 05:56 03/01/18 07:55 Temperature 97.4 F L 98.3 F Pulse Rate 86 81 84 Respiratory Rate 15 16 Blood Pressure 113/53 L 99/42 L 111/56 L Pulse Oximetry 97 96 03/01/18 07:56 Temperature Pulse Rate 83 Respiratory Rate Blood Pressure 112/56 L Pulse Oximetry Intake & Output 02/28/18 03/01/18 03/01/18 18:59 06:59 18:59 Intake Total 2940 / 2940 480 / 480 Balance 2940 / 2940 480 / 480 Intake: IV 1500 / 1500 NS Inj 1,000 ML @ 100 mls/hr IV 1500 / 1500 .CONT .Q10H JUAREZ Rx#:[id number] Oral 1440 / 1440 480 / 480 Other: # Voids 4 # Bowel Movements 1 Narrative: GENERAL: Extremely thin, frail elderly female patient, INAD. Awake and alert. SKIN: Warm, dry, pale. HEAD: Atraumatic. Normocephalic. EYES: Pupils equal and round. No scleral icterus. No injection or drainage. ENT: No nasal bleeding or discharge. Mucous membranes pink and moist. NECK: Trachea midline. CARDIOVASCULAR: Regular rate and rhythm. RESPIRATORY: No accessory muscle use. Clear to auscultation. Breath sounds equal bilaterally. GASTROINTESTINAL: Abdomen soft, non-tender, nondistended. +BS. MUSCULOSKELETAL: Extremities without clubbing, cyanosis, or edema. No obvious deformities. NEUROLOGICAL: Awake and alert. No obvious cranial nerve deficits. Motor grossly within normal limits. Able to move all extremities spontaneously. Normal speech. PSYCHIATRIC: Calm and cooperative. 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 intake -BP improved, continue to monitor Hyponatremia, suspect secondary to hypovolemia Na level 126 at ED presentation improved with IVF -Follow labs. Diarrhea -C diff neg -no eosinophils -Resolved Generalized weakness Failure to thrive Poor p.o. intake -Dietitian consulted, appreciate assistance. Recommends soft diet with Mighty shakes, no Megace as this could cause further adrenal suppression. -Noted increase in p.o. intake -Continue with PT/OT Microcytic anemia NIMESH by iron studies -continue on po iron supplementation -hgb 7.2/23.0-->7.4/23.3 stable with no sign of bleeding. -Recheck H&H tomorrow DVT prophylaxis:High risk, Heparin Discussed Condition With: Patient and RN
[2018-03-01] MEDS: Hydrocortisone 10 MG Tablet PO SCH ×2 (08:31→20:51)
[2018-03-01] MEDS: Heparin - SQ 10,000 UNITS/ML Vial SQ SCH ×2 (08:31→20:51)
[2018-03-01] MEDS: Lactobacillus Acidophilus/L. Spores Tablet PO SCH ×2 (08:31→20:51)
[2018-03-01] MEDS: Senna/Docusate Sodium 8.6/50 MG Tablet PO SCH ×2 (08:32→21:29)
--- NOTE | 2018-03-01 18:17 | P.PNPSY ---
Subjective Remarks: Pt seen and discussed with staff. She has been cooperative with care.She has been pleasant and eating/drinking well. She has not been tearful or weepy today and has been oriented more today. She has been out of room, taking walks around unit and going to unit dayroom. No SI/HI Mental Status Examination Appearance: Appropriate Consciousness: Alert Orientation: x4 Motor Activity: Other (Patient weak using a walker when ambulating) Speech: Unremarkable Language: Adequate Fund of Knowledge: Adequate Attention and Concentration: Adequate Memory: Unremarkable Mood: Sad Affect: Other (some tearfulness intermittently) Thought Process & Associations: Linear Thought Content: Ideas of reference Hallucination Type: None Delusion Type: Other (family is ) Suicidal Ideation: No Suicidal Plan: No Suicidal Intention: No Homicidal Ideation: No Homicidal Plan: No Homicidal Intention: No Insight: Poor Judgment: Poor Assessment and Plan - Assessment (1) Major depressive disorder, single episode, severe, with psychosis Code(s): F32.3 - Major depressive disorder, single episode, severe with psychotic features Status: Acute - Plan Plan: Continue current tx plan. Justification for Continued Inpatient Stay: risk of decompensation Request Healthcare Surrogate/Guardian Advocate?: No
[2018-03-02 07:26] LABS: Hematocrit 21.8 % (35.0-46.0)
[2018-03-02 08:02] LABS: Calcium 8.3 mg/dL (8.5-10.1); Potassium 4.5 meq/L (3.5-5.1)
--- NOTE | 2018-03-02 08:56 | P.PN ---
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 Patient reports she is doing well and is asking when she will be able to go home. Discuss with patient drop in blood levels and recommendations for transfusion, she is agreeable. She denies any bleeding, dark stools noted, but patient does take iron regularly and this is not new for her. She has never had a colonoscopy or endoscopy as she refuses these. She denies any dizziness, lightheadedness, SOB, N/V/D or abdominal pain. She is requesting toast and hard boiled eggs for breakfast. Physical Exam Vital signs: Vital Signs 03/01/18 14:34 03/02/18 05:07 Temperature 98.0 F 97.9 F Pulse Rate 86 84 Respiratory Rate 17 15 Blood Pressure 115/59 L Pulse Oximetry 97 97 Intake & Output 03/01/18 03/02/18 03/02/18 18:59 06:59 18:59 Intake Total 1940 / 1940 480 / 480 960 / 960 Output Total Balance 1940 / 1940 479 / 479 960 / 960 Weight 40.2 kg Intake: Oral 1940 / 1940 480 / 480 960 / 960 Output: Urine Other: # Voids 4 Narrative: GENERAL: Extremely thin, frail elderly female patient, INAD. Awake and alert. SKIN: Warm, dry, pale. HEAD: Atraumatic. Normocephalic. EYES: Pupils equal and round. No scleral icterus. No injection or drainage. ENT: No nasal bleeding or discharge. Mucous membranes pink and moist. NECK: Trachea midline. CARDIOVASCULAR: Regular rate and rhythm. RESPIRATORY: No accessory muscle use. Clear to auscultation. Breath sounds equal bilaterally. GASTROINTESTINAL: Abdomen soft, non-tender, nondistended. +BS. MUSCULOSKELETAL: Extremities without clubbing, cyanosis, or edema. No obvious deformities. NEUROLOGICAL: Awake and alert. No obvious cranial nerve deficits. Motor grossly within normal limits. Able to move all extremities spontaneously. Normal speech. PSYCHIATRIC: Calm and cooperative. 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 and generalized weakness now admitted to inpatient psychiatry Depression Anxiety Failure to thrive -Management per psychiatry Starke's disease possibly contributing given complaints of abdominal pain, fatigue, weight loss, N/V doubt complete suppression since patient does not have hypoglycemia - Symptoms improving -cortisol level 0.8-->4.5, ACTH 154-->121 -Continue on home dose of hydrocortisone Acute renal failure no baseline creatinine other than from 2013 which was normal - Renal function improving s/p IVF -Continue to encourage po fluid -Avoid nephrotoxic agents Hypotension -Component due to Starke's and poor p.o. intake -BP improved, continue to monitor Hyponatremia, suspect secondary to hypovolemia Na level 126 at ED presentation improved with IVF -Latest BMP stable Generalized weakness Failure to thrive Poor p.o. intake -Dietitian consulted, appreciate assistance. Recommends soft diet with Mighty shakes, no Megace as this could cause further adrenal suppression. -Patient with increased p.o. intake, ambulating with the assistance of a walker around the pino. Microcytic anemia NIMESH by iron studies -continue on po iron supplementation -hgb 7.2/23.0-->7.4/23.3-->7.0/21.8. -SPECT hemoconcentration when patient was first admitted, after IV fluids patient with ongoing anemia, microcytic, chronic. -Patient agreeable to unit of PRBC transfusion -No evidence of bleeding, check stool for Hemoccult DVT prophylaxis:High risk, Heparin Discussed Condition With: Patient and RN
[2018-03-02] MEDS ORDERED: Sodium Chlor 0.9% Inj 250 ML IV.SIG SCH (09:00)
[2018-03-02] MEDS: Senna/Docusate Sodium 8.6/50 MG Tablet PO SCH ×2 (09:25→21:50)
[2018-03-02] MEDS: Hydrocortisone 10 MG Tablet PO SCH ×2 (09:25→21:50)
[2018-03-02] MEDS: Lactobacillus Acidophilus/L. Spores Tablet PO SCH ×2 (09:25→21:50)
[2018-03-02] MEDS: Heparin - SQ 10,000 UNITS/ML Vial SQ SCH ×2 (09:26→21:50)
--- NOTE | 2018-03-02 14:35 | P.TTN ---
- Patient Problems Problems: 1. Discharge planning 2. Medication compliance 3. Knowledge deficit 4. Lack of coping skills - Progress Toward Goals Provider Present: Dr. Shannon Alves Provider Input: Still continues to meet criteria, is mal-nourished and has started medication. Affect is brighter. Nurse(s) Present: Kami Nurse Input: Patient continues to improve. Went outside today for recreation. Psychiatric Counselors Present: Other Psychiatric Therapist Input: Patient has increased appetite and improved attitude. Feels much better and good affect. Discharge plan will be for her to return home with home health care services. Group Spec/RT/OT/MONTG[place] Present: Jairo Cortes OT Group Spec/RT/OT/MON[place] Input: She participated today and went outside with other patients. - Documentation Teaching Recipient: Patient
--- NOTE | 2018-03-02 15:16 | P.PNPSY ---
Subjective Remarks: Patient is seen in her room with nurse Derek and medical student wes. Chart reviewed. Patient compliant medication. Patient showing increased range and intensity of her affect she is brighter with better eye contact clean neat hair combed. She says she is feeling better with more energy. However her hemoglobin is dropped to 7.0 patient will be getting a transfusion this afternoon. Hopefully she will get medical clearance for the next few days so that she can be considered for discharge from the psychiatric side also. She does acknowledge still being somewhat depressed but denies suicidality Review of Systems All other systems reviewed negative except as stated in HPI Mental Status Examination Appearance: Appropriate Consciousness: Alert Orientation: x4 Motor Activity: Other (Patient weak using a walker when ambulating) Speech: Unremarkable Language: Adequate Fund of Knowledge: Adequate Attention and Concentration: Adequate Memory: Unremarkable Mood: Sad Affect: Other (Good range and intensity today) Thought Process & Associations: Intact Thought Content: Appropriate Hallucination Type: None Delusion Type: None Suicidal Ideation: No Suicidal Plan: No Suicidal Intention: No Homicidal Ideation: No Homicidal Plan: No Homicidal Intention: No Insight: Fair Judgment: Adequate (Fair) Assessment and Plan - Assessment (1) Major depressive disorder, single episode, severe, with psychosis Code(s): F32.3 - Major depressive disorder, single episode, severe with psychotic features Status: Acute - Plan Plan: Patient calmer more appropriate depression is lifting. She is about to receive transfusion due to hemoglobin dropping to 7.0. It appears she has had these issues in the past which is why she has been on iron supplements. Justification for Continued Inpatient Stay: At this time patient with decompensated placed on a lower level of care Discharge Planning: Probably to return home with home health care Request Healthcare Surrogate/Guardian Advocate?: No
--- NOTE | 2018-03-03 08:36 | P.PN ---
Subjective Interval history: Follow-up visit for Bernabe's and anemia. Patient seen and examined sitting up in bed eating breakfast in no acute distress. Denies any shortness of breath, cough, fevers, chills, nausea, vomiting or diarrhea. She is asking to go home. Received 1 unit of blood yesterday, recheck H&H stable. Physical Exam Vital signs: Vital Signs 03/02/18 15:31 03/02/18 15:45 03/02/18 16:30 Temperature 97.7 F 98.7 F 97.7 F Pulse Rate 89 88 86 Respiratory Rate 20 17 20 Blood Pressure 129/57 L 108/54 L 120/58 L Pulse Oximetry 96 95 96 03/02/18 17:42 03/02/18 17:58 03/02/18 18:00 Temperature 97.5 F L 98.7 F 96.7 F L Pulse Rate 83 88 88 Respiratory Rate 20 17 20 Blood Pressure 118/58 L 108/54 L 123/60 Pulse Oximetry 94 L 95 98 03/03/18 04:56 Temperature 98.5 F Pulse Rate 65 Respiratory Rate 16 Blood Pressure 119/56 L Pulse Oximetry 94 L Intake & Output 03/02/18 03/03/18 03/03/18 18:59 06:59 18:59 Intake Total 2640 / 2640 700 / 700 Balance 2640 / 2640 700 / 700 Intake: Oral 2640 / 2640 700 / 700 Intake (Blood Product) Amt 0 / 0 Rbc As-3 Leukoreduced Unit 0 / 0 [id number] Other: # Voids 3 Narrative: GENERAL: Extremely thin, frail elderly female patient, INAD. Awake and alert. SKIN: Warm, dry. HEAD: Atraumatic. Normocephalic. EYES: Pupils equal and round. No scleral icterus. No injection or drainage. ENT: No nasal bleeding or discharge. Mucous membranes pink and moist. NECK: Trachea midline. CARDIOVASCULAR: Regular rate and rhythm. RESPIRATORY: No accessory muscle use. Clear to auscultation. Breath sounds equal bilaterally. GASTROINTESTINAL: Abdomen soft, non-tender, nondistended. +BS. MUSCULOSKELETAL: Extremities without clubbing, cyanosis, or edema. No obvious deformities. NEUROLOGICAL: Awake and alert. No obvious cranial nerve deficits. Motor grossly within normal limits. Able to move all extremities spontaneously. Normal speech. PSYCHIATRIC: Calm and cooperative. Results - Labs CBC & Chem 7: 03/03/18 09:35 03/02/18 06:15 Laboratory Results - last 24 hr 03/02/18 09:19 Blood Type A Negative Blood Type Recheck Required Antibody Screen Negative MTS Gel Crossmatch See Detail Bld Prod Order Comment Not Reportable Assessment and Plan - Plan 82/F with h/o Kearney's disease presenting with diarrhea and generalized weakness now admitted to inpatient psychiatry Depression Anxiety Failure to thrive -Management per psychiatry Bernabe's disease possibly contributing given complaints of abdominal pain, fatigue, weight loss, N/V doubt complete suppression since patient does not have hypoglycemia - Symptoms improving -cortisol level 0.8-->4.5, ACTH 154-->121 -Continue on home dose of hydrocortisone Acute renal failure no baseline creatinine other than from 2013 which was normal - Renal function improving s/p IVF -Continue to encourage po fluid -Avoid nephrotoxic agents Hypotension -Component due to Bernabe's and poor p.o. intake -BP improved, continue to monitor Hyponatremia, suspect secondary to hypovolemia Na level 126 at ED presentation improved with IVF -Latest BMP stable Generalized weakness Failure to thrive Poor p.o. intake -Dietitian consulted, appreciate assistance. Recommends soft diet with Mighty shakes, no Megace as this could cause further adrenal suppression. -Patient with increased p.o. intake, ambulating with the assistance of a walker around the pino. Microcytic anemia NIMESH by iron studies -continue on po iron supplementation -hgb 7.2/23.0-->7.4/23.3-->7.0/21.8. s/p 1unit PRBC 03/02-->H&H improved. -Suspect hemoconcentration when patient was first admitted, after IV fluids patient with ongoing anemia, microcytic, chronic. -No evidence of bleeding, check stool for Hemoccult - Patient denies Hx endoscopy or colonoscopy, reports she has declined this in the past. -Patient have follow-up for anemia with her primary DVT prophylaxis:High risk, Heparin Medically stable for discharge. [facility] will sign off, please reconsult if needed. Discussed Condition With: Patient and RN
[2018-03-03] MEDS: Lactobacillus Acidophilus/L. Spores Tablet PO SCH (09:28)
[2018-03-03] MEDS: Hydrocortisone 10 MG Tablet PO SCH (09:28)
[2018-03-03] MEDS: Senna/Docusate Sodium 8.6/50 MG Tablet PO SCH (09:28)
[2018-03-03] MEDS: Heparin - SQ 10,000 UNITS/ML Vial SQ SCH (09:29)
[2018-03-03 10:08] LABS: Hematocrit 29.9 % (35.0-46.0); Hemoglobin 9.6 gm/dL (11.6-15.3)
--- NOTE | 2018-03-03 13:02 | P.PNPSY ---
Subjective Remarks: Patient seen in her room with nurse Derek and medical student Ashley. Chart reviewed. Patient compliant medication. Patient was scheduled for a [place] tomorrow. She does not meet criteria for that. I will lift the [place] outpatient sign voluntary. At this time patient is alert oriented, cooperative denying suicidality or homicidality voices or visions. She continues to show quite a bit of "feisty" but appropriately so. At this time I feel patient reached maximum benefit psychiatrically from this hospitalization. We are just awaiting medical clearance for patient to be discharged home. I would also recommend home health care for patient when she is discharged home with a repeat today or tomorrow, with Rx times 1 month and appropriate psychiatric follow-up Review of Systems All other systems reviewed negative except as stated in HPI Mental Status Examination Appearance: Appropriate Consciousness: Alert Orientation: x4 Motor Activity: Other (Patient weak using a walker when ambulating) Speech: Unremarkable Language: Adequate Fund of Knowledge: Adequate Attention and Concentration: Adequate Memory: Unremarkable Mood: Other (Euthymic to mildly dysphoric also continues quite "feisty") Affect: Other (Good range and intensity today) Thought Process & Associations: Intact Thought Content: Appropriate Hallucination Type: None Delusion Type: None Suicidal Ideation: No Suicidal Plan: No Suicidal Intention: No Homicidal Ideation: No Homicidal Plan: No Homicidal Intention: No Insight: Adequate Judgment: Adequate (Fair) Assessment and Plan - Assessment (1) Major depressive disorder, single episode, severe, with psychosis Code(s): F32.3 - Major depressive disorder, single episode, severe with psychotic features Status: Acute - Plan Plan: Patient does not meet Deb[place]ye criteria lift the [place] outpatient sign voluntary. As a kid by psychiatry for patient to be discharged when she is medically cleared. She may return home with home health care referral, Rx times 1 month, and appropriate psychiatric follow-up Justification for Continued Inpatient Stay: Patient may be discharged as soon as we have medical clearance for her with home health care referral, Rx times 1 month, and appropriate psychiatric follow- up Discharge Planning: See above patient to return to her home when discharged with home health care referral appropriate prescriptions and psychiatric follow-up Request Healthcare Surrogate/Guardian Advocate?: No
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
--- NOTE | 2018-03-03 15:32 | P.DCO ---
- Diagnosis (1) Major depressive disorder, single episode, severe, with psychosis Status: Acute - Physical Therapy Order: Evaluate and treat - Occupational Therapy Order: Evaluate and treat - Home Health Nursing Order: Medical education, Signs/symptoms of disease process, Nursing assessment with vital signs - Home Health Aide Order: To assist in: Bathing and personal care, stitch welder and meal prep - Manager Warehouse Order: To evaluate: Support services Order: To provide: Long range planning - Case Management Consult Case Management Consult-Home Health: Yes - Certification I have seen patient Diana Jack on 03/03/18. My clinical findings support the need for the requested home health care services because: Limited mobility due to disease progression, Deconditioned with increased weakness, Limited ability to care for self, Need for psychosocial assistance, High risk of falls I certify that my clinical findings support that this patient is homebound because: Post-op weakness, Unsteady gait/balance
== END 2018-03-03 17:45 | disposition home health service (06) ==
LOC: H250 13:52 → H4EA 02-26 13:30
PROVIDERS: ADMIT Psychiatry & Neurology Psychiatry; ATTEND Psychiatry & Neurology Psychiatry